=== PATIENT | male | born 1955 | race Caucasian/White ===

== ENCOUNTER 2016-08-29 19:59 | Observation (INO) | payer BC ==
[2016-08-29] MEDS ORDERED: NS 0.9% 1000 ML* 1,000 ML IV ONE ×2 (20:13→23:15)
[2016-08-29] MEDS ORDERED: levETIRAcetam IV* 1,000 MG in NS 0.9% 100 ML* 100 ML IVPB ONE (20:13)
[2016-08-29 20:30] LABS: Hematocrit 45 % (42-52); Hemoglobin 15.2 g/dl (14.0-18.0); Mean Corpuscular HGB Conc 34 g/dl (31-36); Mean Corpuscular Hemoglobin 31 pg (27-31); Mean Corpuscular Volume 92 fL (80-94); Mean Platelet Volume 8 um3 (7.4-10.4); Red Blood Count 4.85 10^6/ul (4.0-5.4); Red Cell Distribution Width 13 % (10.5-15); White Blood Count 8.8 10^3/ul (3.5-10.8)
[2016-08-29 20:45] LABS: ALT 20 U/L (7-52); AST 30 U/L (13-39); Albumin 4.5 g/dL (3.2-5.2); Alkaline Phosphatase 55 U/L (34-104); Anion Gap 15 mmol/L (2-11); BUN/Creatinine Ratio 11.8 (8-20); Blood Urea Nitrogen 11 mg/dL (6-24); CO2 Carbon Dioxide 20 mmol/L (22-32); Calcium 9.5 mg/dL (8.6-10.3); Chloride 101 mmol/L (101-111); EGFR African American 107.3 (>60); EGFR Non-African American 83.5 (>60); Globulin 2.6 g/dL (2-4); Glucose 161 mg/dL (70-100); Magnesium 2.1 mg/dL (1.9-2.7); Sodium 136 mmol/L (133-145); Total Protein 7.1 g/dL (6.4-8.9)
[2016-08-29] MEDS ORDERED: levETIRAcetam IV* 500 MG/5 ML VIAL ONE (20:48)
[2016-08-29 21:21] LABS: Alcohol < 10 mg/dL (<10)
[2016-08-29 21:27] LABS: Troponin I 0.02 ng/mL (<0.04)
[2016-08-29] MEDS ORDERED: Diltiazem IV* 5 MG/ML 5 ML VIAL (for loading dose/IV Push) (25 MG) IV SLOW PU ONE (22:10)
--- NOTE | 2016-08-29 22:15 | ED ---
larissa Briseno Timothy, scribed for Winston Perales MD on 08/29/16 at 2010 . Syncope/Near Syncope - HPI Summary HPI Summary: Winston Hinton is a 60 yo male presenting to [facility] with witnessed "seizure-like" activity for several minutes today beginning at 1830, resulting in an extended ( 30-45 minute) post-ictal period. His fiance witnessed the seizure. He denies any pain currently. He states he felt his seizure beginning, and lost his sense of balance. His last seizure was approximately 3 months ago. He states he had gone off his medication, and his seizure followed after a few days, as was the case with this episode. His MHX includes seizures, benign brain tumor, and craniatomy. - History Of Current Complaint Chief Complaint: EDSeizure Time Seen by Provider: 08/29/16 20:02 Hx Obtained From: Patient Onset/Duration: Sudden Onset, Lasting Minutes, Resolved Timing: Intermittent Episode Lasting - minutes Context: Witnessed Associated Signs And Symptoms: Seizure - Allergies/Home Medications Allergies/Adverse Reactions: Allergies Allergy/AdvReac Type Severity Reaction Status Date / Time Penicillins Allergy SEIZURES/RE Verified 08/29/16 22:43 SP Home Medications: Home Medications Red Yeast Rice Extract [Red Yeast Rice] 300 mg PO DAILY 08/29/16 [History Confirmed 08/29/16] Vitamin D3 1 tab PO DAILY 08/29/16 [History Confirmed 08/29/16] PMH/Surg Hx/FS Hx/Imm Hx Endocrine/Hematology History: Denies: Hx Diabetes Cardiovascular History: Denies: Hx Coronary Artery Disease, Hx Hypertension, Hx Pacemaker/ICD Respiratory History: Denies: Hx Asthma Comment Only: Other Respiratory Problems/Disorders - HX OF SEIZURES History: Denies: Hx Dialysis, Hx Renal Disease Sensory History: Denies: Hx Hearing Aid Neurological History: Reports: Hx Seizures - s/p meningioma resection Psychiatric History: Denies: Hx Panic Disorder - Cancer History Cancer Type, 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 TONSILECTOMY Infectious Disease History: No Infectious Disease History: Denies: Traveled Outside the [place] in Last 30 Days - Family History Known Family History: Positive: None Negative: Cardiac Disease, Hypertension, Diabetes Family History: R & n/C - Social History Alcohol Use: None Hx Substance Use: No Substance Use Type: Reports: None Hx Tobacco Use: No Smoking Status (MU): Never Smoked Tobacco Review of Systems Constitutional: Negative Eyes: Negative ENT: Negative Cardiovascular: Negative Respiratory: Negative Gastrointestinal: Negative Genitourinary: Negative Musculoskeletal: Negative Skin: Negative Positive: Syncope - seizure, extended post-ictal period Psychological: Normal All Other Systems Reviewed And Are Negative: Yes Physical Exam Triage Information Reviewed: Yes Vital Signs On Initial Exam: Initial Vitals Temp Pulse Resp BP Pulse Ox 97.5 F 109 20 153/97 97 08/29/16 20:01 08/29/16 20:01 08/29/16 20:01 08/29/16 20:01 08/29/16 20:01 Vital Signs Reviewed: Yes Appearance: Positive: Well-Appearing, No Pain Distress Skin: Positive: Warm Head/Face: Positive: Normal Head/Face Inspection Eyes: Positive: EOMI, UNA ENT: Positive: Hearing grossly normal Neck: Positive: Supple Respiratory/Lung Sounds: Positive: Clear to Auscultation, Breath Sounds Present Cardiovascular: Positive: IRR Abdomen Description: Positive: Nontender, Soft Bowel Sounds: Positive: Present Musculoskeletal: Positive: Strength/ROM Intact Neurological: Positive: Sensory/Motor Intact, Alert, Oriented to Person Place, Time Psychiatric: Positive: Normal Diagnostics - Vital Signs Vital Signs Temp Pulse Resp BP Pulse Ox 08/29/16 20:01 97.5 F 109 20 153/97 97 - Laboratory Lab Results: Lab Results 08/29/16 08/29/16 08/29/16 Range/Units 20:20 20:20 20:20 WBC 8.8 (3.5-10.8) 10^3/ul RBC 4.85 (4.0-5.4) 10^6/ul Hgb 15.2 (14.0-18.0) g/dl Hct 45 (42-52) % MCV 92 (80-94) fL MCH 31 (27-31) pg MCHC 34 (31-36) g/dl RDW 13 (10.5-15) % Plt Count 242 (150-450) 10^3/ul MPV 8 (7.4-10.4) um3 Neut % (Auto) 86.0 H (38-83) % Lymph % (Auto) 6.3 L (25-47) % [place] % (Auto) 6.3 (1-9) % Eos % (Auto) 0.4 (0-6) % Baso % (Auto) 1.0 (0-2) % Absolute Neuts (auto) 7.6 (1.5-7.7) 10^3/ul Absolute Lymphs (auto) 0.6 L (1.0-4.8) 10^3/ul Absolute Monos (auto) 0.6 (0-0.8) 10^3/ul Absolute Eos (auto) 0 (0-0.6) 10^3/ul Absolute Basos (auto) 0.1 (0-0.2) 10^3/ul Absolute Nucleated RBC 0.01 10^3/ul Nucleated RBC % 0.1 INR (Anticoag Therapy) 0.89 (0.89-1.11) Sodium 136 (133-145) mmol/L Potassium 4.0 (3.5-5.0) mmol/L Chloride 101 (101-111) mmol/L Carbon Dioxide 20 L (22-32) mmol/L Anion Gap 15 H (2-11) mmol/L BUN 11 (6-24) mg/dL Creatinine 0.93 (0.67-1.17) mg/dL Est GFR ( Amer) 107.3 (>60) Est GFR (Non-Af Amer) 83.5 (>60) BUN/Creatinine Ratio 11.8 (8-20) Glucose 161 H (70-100) mg/dL Lactic Acid (0.5-2.0) mmol/L Calcium 9.5 (8.6-10.3) mg/dL Magnesium 2.1 (1.9-2.7) mg/dL Total Bilirubin 0.70 (0.2-1.0) mg/dL AST 30 (13-39) U/L ALT 20 (7-52) U/L Alkaline Phosphatase 55 (34-104) U/L Troponin I 0.02 (<0.04) ng/mL Total Protein 7.1 (6.4-8.9) g/dL Albumin 4.5 (3.2-5.2) g/dL Globulin 2.6 (2-4) g/dL Albumin/Globulin Ratio 1.7 (1-3) Serum Alcohol < 10 (<10) mg/dL 08/29/16 Range/Units 20:20 WBC (3.5-10.8) 10^3/ul RBC (4.0-5.4) 10^6/ul Hgb (14.0-18.0) g/dl Hct (42-52) % MCV (80-94) fL MCH (27-31) pg MCHC (31-36) g/dl RDW (10.5-15) % Plt Count (150-450) 10^3/ul MPV (7.4-10.4) um3 Neut % (Auto) (38-83) % Lymph % (Auto) (25-47) % [place] % (Auto) (1-9) % Eos % (Auto) (0-6) % Baso % (Auto) (0-2) % Absolute Neuts (auto) (1.5-7.7) 10^3/ul Absolute Lymphs (auto) (1.0-4.8) 10^3/ul Absolute Monos (auto) (0-0.8) 10^3/ul Absolute Eos (auto) (0-0.6) 10^3/ul Absolute Basos (auto) (0-0.2) 10^3/ul Absolute Nucleated RBC 10^3/ul Nucleated RBC % INR (Anticoag Therapy) (0.89-1.11) Sodium (133-145) mmol/L Potassium (3.5-5.0) mmol/L Chloride (101-111) mmol/L Carbon Dioxide (22-32) mmol/L Anion Gap (2-11) mmol/L BUN (6-24) mg/dL Creatinine (0.67-1.17) mg/dL Est GFR ( Amer) (>60) Est GFR (Non-Af Amer) (>60) BUN/Creatinine Ratio (8-20) Glucose (70-100) mg/dL Lactic Acid 6.7 H* (0.5-2.0) mmol/L Calcium (8.6-10.3) mg/dL Magnesium (1.9-2.7) mg/dL Total Bilirubin (0.2-1.0) mg/dL AST (13-39) U/L ALT (7-52) U/L Alkaline Phosphatase (34-104) U/L Troponin I (<0.04) ng/mL Total Protein (6.4-8.9) g/dL Albumin (3.2-5.2) g/dL Globulin (2-4) g/dL Albumin/Globulin Ratio (1-3) Serum Alcohol (<10) mg/dL Result Diagrams: 08/29/16 20:20 08/29/16 20:20 Lab Statement: Any lab studies that have been ordered have been reviewed, and results considered in the medical decision making process. - EKG 2015 Cardiac Rate: Tachycardia EKG Rhythm: Atrial Fibrillation EKG Interpretation: afib, rapid ventricular response Re-Evaluation - Re-Evaluation First Eval Change: Improved - hr dec with cardizem, will admit new onset a fib Course/Dx Assessment/Plan: Winston Hinton is a 60 yo male presenting to [facility] after a witnessed seizure with a 40-45 minute post-ictal period. His EKG showed afib, and rapid ventricular response. After review of his lab results, and consultation with Dr. Ybarra, he will be admitted to [facility] - Diagnoses Provider Diagnoses: New onset a-fib - Physician Notifications Discussed Care Of Patient With: 2245 [facility] - discussed Pt condition, agrees to admit Pt. Instructed by Provider To: Admit As Inpatient Discharge - Discharge Plan Condition: Fair Disposition: ADMITTED TO [facility] The documentation as recorded by the larissa castillo Timothy accurately reflects the service I personally performed and the decisions made by me, Winston Perales MD.
[2016-08-29] MEDS ORDERED: Melatonin (NF) 3 MG TAB PO PRN (23:14)
[2016-08-29] MEDS ORDERED: Acetaminophen TAB* 325 MG PO PRN (23:14)
[2016-08-29] MEDS ORDERED: Ondansetron INJ* 2 MG/ML VIAL IV PRN (23:14)
[2016-08-29] MEDS ORDERED: NS 0.9% 1000 ML* 1,000 ML IV SCH (23:15)
--- NOTE | 2016-08-29 23:16 | HP ---
H&P (Free Text) History and Physical: PCP: Erika Skaggs MD Date/Time of Evaluation: 08/29/2016 2310 CC: seizure HPI: Mr Hinton is a 60YO male HX seizure disorder & admitted non-adherence to medications who presents this evening reporting he recalls feeling palpitations and then "passing out". His fiance was present and reported "seizure like" movements to EMS upon arrival. He remained post-ictal for possibly up to 45minutes. He denies chest pain, SOB, N/V, sweating, or other issues. He admits missing 2 doses of levetiracetam Sunday and another dose today. His last seizure was ~3months ago again after medication non-adherence. He has been continuing to drive and is informed that he is not to drive at this point until released by neurology and the [facility] DMV. Additionally, ED evaluation found new onset AFIB/RVR. He does admit to an episode of palpitations roughly monthly each lasting just a few minutes, but is unsure for how long. PMedHx seizure disorder meningioma "tennis ball sized" s/p resection Allergies Penicillins Allergy (Verified 08/29/16 22:43) SEIZURES/RESP Ambulatory Orders Ascorbic Acid TAB* [Vitamin C TAB*] 500 mg PO DAILY 06/26/14 Multiple Minerals W/ Vitamins [[id number]] 1 tab PO DAILY 06/26/14 Multiple Vitamin [Daily-Vitamin] 1 tab PO DAILY 06/26/14 Niacin ER TAB* [Niaspan ER TAB*] 500 mg PO DAILY 06/26/14 Vitamin E CAP* 400 unit PO DAILY 06/26/14 levETIRAcetam TAB* [Keppra TAB*] 250 mg PO TID 06/26/14 Red Yeast Rice Extract [Red Yeast Rice] 300 mg PO DAILY 08/29/16 Vitamin D3 1 tab PO DAILY 08/29/16 PSurgHx craniotomy tonsillectomy SocHx: former social smoker, 12beers/weekend, no recreational drugs; works as a enterprise project manager; lives with his fiance; full code status FamHx: reviewed, non-contributory; Father committed suicide. Mother passed in her 80s 2nd complications of Alzheimer's. ROS: as above, otherwise reviewed and all were negative Constitutional: NAD, normally developed, overweight white male vitals: Vital Signs Temp 36.4 C 08/29/16 20:01 Pulse 98 08/30/16 00:16 Resp 15 08/30/16 00:16 BP 145/101 08/30/16 00:16 Pulse Ox 94 08/30/16 00:01 Intake & Output 08/29/16 08/29/16 08/30/16 11:59 23:59 11:59 Intake Total 1110 Balance 1110 Weight 180 lb Intake: IV Fluids 1110 HEENM: atraumatic; sclera/conjunctiva: non-icteric/clear; hearing: clinically intact; oropharynx: clear, mucosa moist Neck: soft tissue: non-tender; thyroid: normal Pulmonary: clear to auscultation bilaterally, good aeration, no accessory muscle use CV: RR/RR, normal S1S2, no carotid bruit, no jugular venous distention, 2+ B DP/ PT, no edema Abdominal: soft, non-distended, non-tender, no rebound/guarding/rigidity, normoactive bowel sounds, no hepatosplenomegaly or masses, no costovertebral angle tenderness Musculoskeletal: general: grossly intact; gait: stable Integumental: normal appearance and texture Psychiatric orientation: AA&O to PPTS affect: calm mood: cooperative eye contact: good content: reliable memory: absent regarding event responses: timely insight: fair Testing: Lab Results 08/29/16 08/29/16 08/29/16 Range/Units 20:20 20:20 20:20 WBC 8.8 (3.5-10.8) 10^3/ul RBC 4.85 (4.0-5.4) 10^6/ul Hgb 15.2 (14.0-18.0) g/dl Hct 45 (42-52) % MCV 92 (80-94) fL MCH 31 (27-31) pg MCHC 34 (31-36) g/dl RDW 13 (10.5-15) % Plt Count 242 (150-450) 10^3/ul MPV 8 (7.4-10.4) um3 Neut % (Auto) 86.0 H (38-83) % Lymph % (Auto) 6.3 L (25-47) % [place] % (Auto) 6.3 (1-9) % Eos % (Auto) 0.4 (0-6) % Baso % (Auto) 1.0 (0-2) % Absolute Neuts (auto) 7.6 (1.5-7.7) 10^3/ul Absolute Lymphs (auto) 0.6 L (1.0-4.8) 10^3/ul Absolute Monos (auto) 0.6 (0-0.8) 10^3/ul Absolute Eos (auto) 0 (0-0.6) 10^3/ul Absolute Basos (auto) 0.1 (0-0.2) 10^3/ul Absolute Nucleated RBC 0.01 10^3/ul Nucleated RBC % 0.1 INR (Anticoag Therapy) 0.89 (0.89-1.11) Sodium 136 (133-145) mmol/L Potassium 4.0 (3.5-5.0) mmol/L Chloride 101 (101-111) mmol/L Carbon Dioxide 20 L (22-32) mmol/L Anion Gap 15 H (2-11) mmol/L BUN 11 (6-24) mg/dL Creatinine 0.93 (0.67-1.17) mg/dL Est GFR ( Amer) 107.3 (>60) Est GFR (Non-Af Amer) 83.5 (>60) BUN/Creatinine Ratio 11.8 (8-20) Glucose 161 H (70-100) mg/dL Lactic Acid (0.5-2.0) mmol/L Calcium 9.5 (8.6-10.3) mg/dL Magnesium 2.1 (1.9-2.7) mg/dL Total Bilirubin 0.70 (0.2-1.0) mg/dL AST 30 (13-39) U/L ALT 20 (7-52) U/L Alkaline Phosphatase 55 (34-104) U/L Troponin I 0.02 (<0.04) ng/mL Total Protein 7.1 (6.4-8.9) g/dL Albumin 4.5 (3.2-5.2) g/dL Globulin 2.6 (2-4) g/dL Albumin/Globulin Ratio 1.7 (1-3) Serum Alcohol < 10 (<10) mg/dL 08/29/16 08/30/16 Range/Units 20:20 00:10 WBC (3.5-10.8) 10^3/ul RBC (4.0-5.4) 10^6/ul Hgb (14.0-18.0) g/dl Hct (42-52) % MCV (80-94) fL MCH (27-31) pg MCHC (31-36) g/dl RDW (10.5-15) % Plt Count (150-450) 10^3/ul MPV (7.4-10.4) um3 Neut % (Auto) (38-83) % Lymph % (Auto) (25-47) % [place] % (Auto) (1-9) % Eos % (Auto) (0-6) % Baso % (Auto) (0-2) % Absolute Neuts (auto) (1.5-7.7) 10^3/ul Absolute Lymphs (auto) (1.0-4.8) 10^3/ul Absolute Monos (auto) (0-0.8) 10^3/ul Absolute Eos (auto) (0-0.6) 10^3/ul Absolute Basos (auto) (0-0.2) 10^3/ul Absolute Nucleated RBC 10^3/ul Nucleated RBC % INR (Anticoag Therapy) (0.89-1.11) Sodium (133-145) mmol/L Potassium (3.5-5.0) mmol/L Chloride (101-111) mmol/L Carbon Dioxide (22-32) mmol/L Anion Gap (2-11) mmol/L BUN (6-24) mg/dL Creatinine (0.67-1.17) mg/dL Est GFR ( Amer) (>60) Est GFR (Non-Af Amer) (>60) BUN/Creatinine Ratio (8-20) Glucose (70-100) mg/dL Lactic Acid 6.7 H* 1.2 (0.5-2.0) mmol/L Calcium (8.6-10.3) mg/dL Magnesium (1.9-2.7) mg/dL Total Bilirubin (0.2-1.0) mg/dL AST (13-39) U/L ALT (7-52) U/L Alkaline Phosphatase (34-104) U/L Troponin I (<0.04) ng/mL Total Protein (6.4-8.9) g/dL Albumin (3.2-5.2) g/dL Globulin (2-4) g/dL Albumin/Globulin Ratio (1-3) Serum Alcohol (<10) mg/dL ECG, personally reviewed: AFIB rate 126, mild inferior ST depression Impression: 60M presenting after seizure 2nd medication non-adherence and found to be in new onset AFIB/RVR DIAGNOSIS & PLAN Primary AFIB/RVR : rate control : heparin GTT : supplemental oxygen : IVFs : telemetry : consider cardiology consult in AM, if appropriate : supportive care seizure disorder : complicated my recurrent medication non-adherence : no driving until released by neurology & [place] DMV : levetiracetam 1g IV in ED, restart 250mg PO TID in AM : seizure precautions : consider neurology consult in AM Admission Rational: observation for AFIB/RVR DVTp: heparin GTT Code Status: full
[2016-08-30] MEDS ORDERED: Heparin DRIP 25,000 UNITS(*) 25,000 UNITS/500 ML BAG IVPB SCH (00:45)
[2016-08-30] MEDS: Metoprolol Succinate XL TAB* 25 MG PO SCH ×2 (00:56→09:50)
[2016-08-30] MEDS ORDERED: Heparin VIAL(*) 5000 UNITS/ML VIAL (FIVE THOUSAND) IV SCH (01:00)
[2016-08-30] MEDS ORDERED: Heparin VIAL(*) 5000 UNITS/ML VIAL (FIVE THOUSAND) SUBCUT SCH (06:00)
[2016-08-30] MEDS ORDERED: Omeprazole CAP* 20 MG PO SCH (06:00)
[2016-08-30] MEDS ORDERED: Docusate CAP* 100 MG PO SCH (09:00)
[2016-08-30] MEDS ORDERED: Influenza VAC *QUAD* 2016-17* 0.5 ML SYRINGE IM ONE (09:00)
[2016-08-30] MEDS ORDERED: Niacin ER TAB* 500 MG PO SCH (09:00)
[2016-08-30] MEDS: levETIRAcetam TAB* 500 MG PO SCH ×2 (09:50→12:24)
--- NOTE | 2016-08-30 10:11 | DCNOTE ---
Subjective Date of Service: 08/30/16 Interval History: No new c/o, anxious to go home. He states he simply misplaced his levetiracetam. He states he only gets a seizure when he misses some doses, and this may happen about 3 times a year. He states he only drinks on weekends. When I asked if he drinks 10 beers on a weekend, he agreed. Objective Active Medications: Acetaminophen (Tylenol Tab*) 650 mg PO Q6H PRN PRN Reason: FEVER/PAIN Docusate Sodium (Colace Cap*) 200 mg PO BID [facility] Last Admin: 08/30/16 09:50 Dose: 200 mg Heparin Sodium (Porcine) (Heparin Vial(*)) 0 units IV .PER PROTOCOL [facility] Last Admin: 08/30/16 03:11 Dose: 6,100 units Sodium Chloride (Ns 0.9% 1000 Ml*) 1,000 mls @ 100 mls/hr IV PER RATE [facility] Last Admin: 08/30/16 00:55 Dose: 100 mls/hr Heparin Sodium/Dextrose (Heparin Drip 25,000 Units(*)) 25,000 units in 500 mls @ 0 mls/hr IVPB .(INITIAL RATE) [facility]; Per Protocol PRN Reason: Protocol Last Admin: 08/30/16 03:14 Dose: 23 mls/hr Levetiracetam (Keppra Tab*) 250 mg PO TID [facility] Last Admin: 08/30/16 09:50 Dose: 250 mg Melatonin (Melatonin (Nf)) 3 mg PO BEDTIME PRN; Protocol PRN Reason: Sleep Metoprolol Succinate (Toprol Xl Tab*) 25 mg PO DAILY [facility] Last Admin: 08/30/16 09:50 Dose: 25 mg Niacin (Niaspan Er Tab*) 500 mg PO DAILY [facility] Omeprazole (Prilosec Cap*) 20 mg PO DAILY@0600 [facility] Last Admin: 08/30/16 05:46 Dose: 20 mg Ondansetron HCl (Zofran Inj*) 4 mg IV Q6H PRN PRN Reason: NAUSEA Last Admin: 08/30/16 00:55 Dose: 4 mg Vital Signs 08/30/16 08/30/16 08/30/16 00:30 00:57 02:20 Temperature 98.3 F 98.3 F Pulse Rate 100 116 116 Respiratory 23 18 18 Rate Blood Pressure 171/89 188/113 188/113 (mmHg) O2 Sat by Pulse 95 97 97 Oximetry 08/30/16 08/30/16 08/30/16 03:47 07:44 07:47 Temperature 98.9 F 100.5 F Pulse Rate 74 67 Respiratory 16 18 16 Rate Blood Pressure 152/87 156/95 (mmHg) O2 Sat by Pulse 95 90 Oximetry Oxygen Devices in Use Now: None Appearance: Alert, sitting on the edge of the bed. In fair spirits. Looks comfortable. Eyes: No Scleral Icterus Ears/Nose/Mouth/Throat: Clear Oropharnyx, Mucous Membranes Moist Neck: NL Appearance and Movements; NL JVP, No Thyroid Enlargement, Masses Respiratory: Symmetrical Chest Expansion and Respiratory Effort, Clear to Auscultation, Clear to Percussion Cardiovascular: NL Sounds; No Murmurs; No JVD, RRR, No Edema, - Extremities: No Edema, No Clubbing, Cyanosis, - Skin: No Rash or Ulcers, No Nodules or Sclerosis, - Neurological: Alert and Oriented x 3, NL Sensation Result Diagrams: 08/29/16 20:20 08/29/16 20:20 Additional Lab and Data: Lab Results 08/29/16 08/29/16 08/29/16 Range/Units 20:20 20:20 20:20 WBC 8.8 (3.5-10.8) 10^3/ul RBC 4.85 (4.0-5.4) 10^6/ul Hgb 15.2 (14.0-18.0) g/dl Hct 45 (42-52) % MCV 92 (80-94) fL MCH 31 (27-31) pg MCHC 34 (31-36) g/dl RDW 13 (10.5-15) % Plt Count 242 (150-450) 10^3/ul MPV 8 (7.4-10.4) um3 Neut % (Auto) 86.0 H (38-83) % Lymph % (Auto) 6.3 L (25-47) % [place] % (Auto) 6.3 (1-9) % Eos % (Auto) 0.4 (0-6) % Baso % (Auto) 1.0 (0-2) % Absolute Neuts (auto) 7.6 (1.5-7.7) 10^3/ul Absolute Lymphs (auto) 0.6 L (1.0-4.8) 10^3/ul Absolute Monos (auto) 0.6 (0-0.8) 10^3/ul Absolute Eos (auto) 0 (0-0.6) 10^3/ul Absolute Basos (auto) 0.1 (0-0.2) 10^3/ul Absolute Nucleated RBC 0.01 10^3/ul Nucleated RBC % 0.1 INR (Anticoag Therapy) 0.89 (0.89-1.11) Sodium 136 (133-145) mmol/L Potassium 4.0 (3.5-5.0) mmol/L Chloride 101 (101-111) mmol/L Carbon Dioxide 20 L (22-32) mmol/L Anion Gap 15 H (2-11) mmol/L BUN 11 (6-24) mg/dL Creatinine 0.93 (0.67-1.17) mg/dL Est GFR ( Amer) 107.3 (>60) Est GFR (Non-Af Amer) 83.5 (>60) BUN/Creatinine Ratio 11.8 (8-20) Glucose 161 H (70-100) mg/dL Lactic Acid (0.5-2.0) mmol/L Calcium 9.5 (8.6-10.3) mg/dL Magnesium 2.1 (1.9-2.7) mg/dL Total Bilirubin 0.70 (0.2-1.0) mg/dL AST 30 (13-39) U/L ALT 20 (7-52) U/L Alkaline Phosphatase 55 (34-104) U/L Troponin I 0.02 (<0.04) ng/mL Total Protein 7.1 (6.4-8.9) g/dL Albumin 4.5 (3.2-5.2) g/dL Globulin 2.6 (2-4) g/dL Albumin/Globulin Ratio 1.7 (1-3) Serum Alcohol < 10 (<10) mg/dL 08/29/16 Range/Units 20:20 WBC (3.5-10.8) 10^3/ul RBC (4.0-5.4) 10^6/ul Hgb (14.0-18.0) g/dl Hct (42-52) % MCV (80-94) fL MCH (27-31) pg MCHC (31-36) g/dl RDW (10.5-15) % Plt Count (150-450) 10^3/ul MPV (7.4-10.4) um3 Neut % (Auto) (38-83) % Lymph % (Auto) (25-47) % [place] % (Auto) (1-9) % Eos % (Auto) (0-6) % Baso % (Auto) (0-2) % Absolute Neuts (auto) (1.5-7.7) 10^3/ul Absolute Lymphs (auto) (1.0-4.8) 10^3/ul Absolute Monos (auto) (0-0.8) 10^3/ul Absolute Eos (auto) (0-0.6) 10^3/ul Absolute Basos (auto) (0-0.2) 10^3/ul Absolute Nucleated RBC 10^3/ul Nucleated RBC % INR (Anticoag Therapy) (0.89-1.11) Sodium (133-145) mmol/L Potassium (3.5-5.0) mmol/L Chloride (101-111) mmol/L Carbon Dioxide (22-32) mmol/L Anion Gap (2-11) mmol/L BUN (6-24) mg/dL Creatinine (0.67-1.17) mg/dL Est GFR ( Amer) (>60) Est GFR (Non-Af Amer) (>60) BUN/Creatinine Ratio (8-20) Glucose (70-100) mg/dL Lactic Acid 6.7 H* (0.5-2.0) mmol/L Calcium (8.6-10.3) mg/dL Magnesium (1.9-2.7) mg/dL Total Bilirubin (0.2-1.0) mg/dL AST (13-39) U/L ALT (7-52) U/L Alkaline Phosphatase (34-104) U/L Troponin I (<0.04) ng/mL Total Protein (6.4-8.9) g/dL Albumin (3.2-5.2) g/dL Globulin (2-4) g/dL Albumin/Globulin Ratio (1-3) Serum Alcohol (<10) mg/dL Assess/Plan/Problems-Billing Assessment: - Patient Problems (1) Seizure Current Visit: Yes Status: Acute Code(s): R56.9 - UNSPECIFIED CONVULSIONS SNOMED Code(s): 29996239 Comment: Patient states he only gets a seizure when he misses some doses of levetriacetam. He tolerates the med well. He understands that it is very important to not miss any doses. He will ask Dr. Link about the possibility of once daily or twice daily dosing of levetiracetam. He will moderate his alcohol use. (2) Atrial fibrillation Current Visit: Yes Status: Acute Code(s): I48.91 - UNSPECIFIED ATRIAL FIBRILLATION SNOMED Code(s): 15874097 Comment: PAF, converted spontaneously about 1:30 AM today. Patient informed that alcohol consumption can precipatate atrial fib. He will try to moderate his alcohol consumption. Echo done, report pending. Add on TSH pending. Consider outpt long-term cardiac monitoring. Status and Disposition: Discharge now. Fup Nikolay Eckert.
[2016-08-30 11:07] LABS: Urine Bilirubin Negative (Negative); Urine Glucose Negative (Negative); Urine Nitrite Negative (Negative)
[2016-08-30 12:09] VITALS: BP 155/85
--- NOTE | 2016-08-30 12:17 | ECHO ---
Patient: SELIN ECHEVARRIA [facility] Rec#: [id number] : 1955 Date: 08/30/2016 Age: 60y Height: 175.26 cm / 69.0 in Weight: 85.28 kg / 188.0 lbs Sex: M BSA: 2.01 Room#: 452 Admit Date#: 08/30/2016 Type: Inpatient Referring: Breezy Hameed MD Reading: Janice Cueva MD Masticator: Martha Scruggs FAHEEM CC: Ollie Skaggs MD Transthoracic Echocardiogram Indication: A-fib with RVR BP: 156/95 HR: 64 Rhythm: NSR Findings History: Seizures, noncompliance with medications,palpitations,nonsmoker. Technical Comments: The study quality is good. Completed at 1051. Left Ventricle: The left ventricular chamber size is normal. Mild concentric left ventricular hypertrophy is observed. Global left ventricular wall motion and contractility are within normal limits. The estimated ejection fraction is 55-60%. Abnormal left ventricular diastolic filling is observed, consistent with impaired relaxation. Left Atrium: The left atrium is mildly dilated. Right Ventricle: The right ventricle is mildly dilated. The right ventricular global systolic function is normal. Right Atrium: The right atrium is mildly dilated. Aortic Valve: The aortic valve is trileaflet. The aortic valve leaflets are mildly thickened. Systolic excursion of the non coronary cusp is reduced. There is no evidence of aortic regurgitation. There is mild aortic stenosis. Highest aortic valve velocity was acquired with Pedoff in right sternal border position. Mitral Valve: The mitral valve leaflets are mildly thickened. There is mild mitral regurgitation. There is no evidence of mitral stenosis. Tricuspid Valve: The tricuspid valve leaflets are normal. There is mild tricuspid regurgitation. There is evidence that pulmonary hypertension may be underestimated. There is no tricuspid stenosis. Pulmonic Valve: The pulmonic valve appears normal. There is mild pulmonic regurgitation. There is no pulmonic stenosis. Pericardium: A pericardial fat pad is visualized. Aorta: There is no dilatation of the ascending aorta. There is no dilatation of the aortic arch. There is mild dilatation of the aortic root. Pulmonary Artery: The main pulmonary artery appears normal. Venous: The inferior vena cava appears normal in size. There is a greater than 50% respiratory change in the inferior vena cava dimension. Conclusions Mild concentric left ventricular hypertrophy is observed. Global left ventricular wall motion and contractility are within normal limits. Abnormal left ventricular diastolic filling is observed, consistent with impaired relaxation. The right ventricular global systolic function is normal. The aortic valve leaflets are mildly thickened. There is mild aortic stenosis: mean gradient 8mm Hg, LAKISHA 2.3 cm2. DI 0.51. There is mild mitral regurgitation. There is mild tricuspid regurgitation. No prior study for comparison. Measurements Name Value Normal Range RVIDd (AP) 2D 3.9 cm (0.9 - 2.6) RVDdMajor (2D) 3.7 cm (2.2 - 4.4) RAd ISD 4CH 5.9 cm (3.4 - 4.9) RA (A4C)W 4 cm (2.9 - 4.6) IVSd (2D) 1.2 cm (0.6 - 1) LVPWd (2D) 1.2 cm (0.6 - 1) LVIDd (2D) 4.1 cm (3.6 - 5.4) LVIDs (2D) 2.7 cm - LV FS (2D) 36 % (25 - 45) Aortic Annulus 1.9 cm (1.4 - 2.6) Ao root diameter (2D) 3.8 cm (2.1 - 3.5) Ascending Ao 3.4 cm (2.1 - 3.4) Aortic arch 3.1 cm (1.8 - 3.4) Descending Ao 0.7 cm - LA dimension (AP) 2D 4.1 cm (2.3 - 3.8) LAd ISD 4CH 4.7 cm (2.9 - 5.3) LA ISD 4CH W 4.1 cm (2.5 - 4.5) Name Value Normal Range LA ESV SP 4CH (A/L) 53 ml - LA ESV SP 2CH (A/L) 72 ml - LA ESV BP (A/L) 66 ml - LA ESV BP (A/L) index 32.72 ml/m2 - LA ESV SP 4CH (MOD) 48 ml - LA ESV SP 2CH (MOD) 69 ml - Name Value Normal Range MV E-wave Vmax 1.1 m/sec - MV deceleration time 208 msec - MV A-wave Vmax 0.9 m/sec - MV E:A ratio 1.12 ratio - LV septal e' Vmax 0.09 m/sec - LV lateral e' Vmax 0.09 m/sec - LV E:e' septal ratio 12.22 ratio - LV E:e' lateral ratio 12.22 ratio - Name Value Normal Range AV Vmax 2.3 m/sec - AV VTI 49.2 cm - AV peak gradient 21.76 mmHg - AV mean gradient 8.35 mmHg - LVOT diameter 2.3 cm - LVOT Vmax 1.1 m/sec - LVOT VTI 25.4 cm - LVOT peak gradient 5.24 mmHg - LVOT mean gradient 2.19 mmHg - SV LVOT 102 ml - LAKISHA (continuity Vmax) 2 cm2 - LAKISHA (continuity VTI) 2.3 cm2 - Name Value Normal Range TR Vmax 2.7 m/sec - TR peak gradient 28 mmHg - RAP 3 mmHg - RVSP 31 mmHg - IVC diameter 2 cm - Name Value Normal Range PV Vmax 1 m/sec - PV peak gradient 3.83 mmHg -
--- NOTE | 2016-08-30 22:23 | DS ---
DISCHARGE SUMMARY: DATE OF ADMISSION: DATE OF DISCHARGE: 08/30/16 HISTORY: This 60-year-old man presented after seizure. He had some palpitations too. He says he gets palpitations now and then, but usually does not get dizzy with them. He is not really sure that he gets palpitations before seizures. He does get an aura feeling dizzy in a different way before his seizures. He says he only get seizures when he misses a few doses of his levetiracetam. He did miss a few doses at this time. He states this happens 3 times a year or so. There is no particular reason why he missed the doses of medications. He does not have any major side effects from the medications and understands that he needs to take the medications to prevent seizures. The patient was in atrial fibrillation with rapid ventricular rate on admission. He was started on heparin and placed on telemetry. About 1:30 in the morning, he converted to normal sinus rhythm. When I asked him about alcohol consumption, he said he drank on the weekends. When I asked if he drank 10 beers on the weekend, he said yes. I suspect it is even more than that. I explained to him that alcohol can precipitate atrial fibrillation. He said he could do without the alcohol. I had a lengthy discussion with him about the need to take his medications regularly and to find a more reliable system to avoid missing doses. Possibly, he could have his levetiracetam in fewer than 3 doses a day, which might help him with his compliance. I will leave this up to Dr. Link. In terms of his atrial fibrillation, add on TSH and echocardiogram were requested, the reports are pending. As he converted to normal sinus rhythm, I suspect his heart is structurally normal. I think it might be worthwhile to do long-term cardiac monitoring either with 4-week Holter monitor or loop recorder to see if he is having other episodes of atrial fibrillation. If they are precipitated by his drinking and he stops drinking, then he should few or none episodes of atrial fibrillation. If he does have significant number of episodes of atrial fibrillation, then custodial anticoagulation would be a consideration, although his scoring for this would be relatively low. FINAL DIAGNOSES: 1. Seizure disorder. 2. Medication noncompliance. 3. Paroxysmal atrial fibrillation. 4. Alcohol excess. DISCHARGE MEDICATIONS: 1. Niaspan 500 mg daily. 2. Multivitamin with mineral daily. 3. Levetiracetam 250 mg b.i.d. 4. Multivitamin daily. 5. Vitamin B 400 units daily. 6. Ascorbic acid 500 mg daily. 7. Vitamin D3 1 tablet daily. 8. Red yeast extract 300 mg daily. CC: Dr. Skaggs; Dr. Link* [id number]/[facility] #: [id number] [facility]
== END 2016-08-30 13:15 | disposition home or self-care (01) ==
LOC: ED 19:59 → MEDTELE 08-30 00:23
PROVIDERS: ADMIT Hospitalist; ATTEND Internal Medicine
DX: I48.0 Paroxysmal atrial fibrillation (principal); G40.909 Epilepsy, unspecified, not intractable, without status epilepticus; Z91.14 Patient's other noncompliance with medication regimen; I51.7 Cardiomegaly; Z79.899 Other long term (current) drug therapy; Z88.0 Allergy status to penicillin; Z87.891 Personal history of nicotine dependence; Z23 Encounter for immunization
CPT/HCPCS: 36415; 80053; 80177; 80320; 81003; 83605; 83735; 84443; 84484; 85025; 85610; 85730; 90471; 90686; 93005; 93306; 96365; 96366; 96367; 99285; A9270-GY; G0008; G0378; G0480; J1644; J2405

== ENCOUNTER 2016-10-24 10:49 | Emergency (ER) | payer BC ==
[2016-10-24] MEDS ORDERED: NS 0.9% 1000 ML* 1,000 ML IV ONE (10:57)
[2016-10-24 11:22] LABS: Hematocrit 46 % (42-52); Hemoglobin 15.5 g/dl (14.0-18.0); Mean Corpuscular HGB Conc 34 g/dl (31-36); Mean Corpuscular Hemoglobin 31 pg (27-31); Mean Corpuscular Volume 92 fL (80-94); Mean Platelet Volume 7 um3 (7.4-10.4); Red Cell Distribution Width 13 % (10.5-15); White Blood Count 8.1 10^3/ul (3.5-10.8)
--- NOTE | 2016-10-24 11:23 | RAD ---
INDICATION: Seizure. COMPARISON: Comparison is made with a prior chest x-ray study from January 18, 2016. TECHNIQUE: A portable view of the chest was obtained. FINDINGS: Cardiac and mediastinal contours appear to be within normal limits. The lungs are clear. No pleural effusion is seen. IMPRESSION: NO EVIDENCE FOR ACUTE DISEASE.
[2016-10-24 11:37] LABS: ALT 21 U/L (7-52); AST 30 U/L (13-39); Albumin 4.6 g/dL (3.2-5.2); Alkaline Phosphatase 67 U/L (34-104); Anion Gap 11 mmol/L (2-11); Blood Urea Nitrogen 13 mg/dL (6-24); CO2 Carbon Dioxide 23 mmol/L (22-32); Calcium 9.7 mg/dL (8.6-10.3); Chloride 98 mmol/L (101-111); EGFR African American 98.7 (>60); EGFR Non-African American 76.7 (>60); Globulin 2.7 g/dL (2-4); Glucose 176 mg/dL (70-100); Magnesium 2.2 mg/dL (1.9-2.7); Potassium 3.7 mmol/L (3.5-5.0); Sodium 132 mmol/L (133-145); Total Protein 7.3 g/dL (6.4-8.9)
[2016-10-24 12:01] LABS: Alcohol < 10 mg/dL (<10)
[2016-10-24] MEDS ORDERED: levETIRAcetam TAB* 500 MG PO ONE ×2 (12:08→12:20)
[2016-10-24 12:13] LABS: Urine Bacteria Absent (Absent); Urine Bilirubin Negative (Negative); Urine Glucose Negative (Negative); Urine Nitrite Negative (Negative)
[2016-10-24 12:23] LABS: Benzodiazepine Urine Screen None Detected (None Detect)
[2016-10-24] MEDS ORDERED: Acetaminophen TAB* 325 MG PO ONE (12:29)
--- NOTE | 2016-10-24 12:50 | ED ---
larissa Briseno Timothy, scribed for Hunter Lux MD on 10/24/16 at 1100 . Syncope/Near Syncope - HPI Summary HPI Summary: Winston Hinton is a 60 yo male presenting to [facility] with seizure. Pt was at work sitting at his desk when Sx began. A coworker walked into the office and "saw him snoring, laying down on his desk". Per EMS, he had a seizure and was postictal when found by his coworker. Pt currently is oriented to person place and time. He states he thinks he has a seizure, but does not really remember. He states he does not believe that he hit his head or bit his tongue. He self- medicates with Keppra, 250 ml TID. His neurologist is Dr. Link. His MHx includes seizures S/P meningioma resection, and depression. - History Of Current Complaint Time Seen by Provider: 10/24/16 10:55 Hx Obtained From: Patient Onset/Duration: Sudden Onset, Lasting Minutes, Resolved Timing: Intermittent Episode Lasting - minutes Context: Unwitnessed Activity At Onset: At Rest Associated Head Trauma: No Aggravating Factor(s): Nothing Alleviating Factor(s): Spontaneous Resolution Associated Signs And Symptoms: Seizure - Allergies/Home Medications Allergies/Adverse Reactions: Allergies Allergy/AdvReac Type Severity Reaction Status Date / Time Penicillins Allergy SEIZURES/RE Verified 10/24/16 11:01 SP PMH/Surg Hx/FS Hx/Imm Hx Endocrine/Hematology History: Denies: Hx Diabetes Cardiovascular History: Denies: Hx Coronary Artery Disease, Hx Hypertension, Hx Pacemaker/ICD Respiratory History: Denies: Hx Asthma Comment Only: Other Respiratory Problems/Disorders - HX OF SEIZURES History: Denies: Hx Dialysis, Hx Renal Disease Sensory History: Denies: Hx Hearing Aid Neurological History: Reports: Hx Seizures - s/p meningioma resection Psychiatric History: Reports: Hx Depression Denies: Hx Panic Disorder - Cancer History Cancer Type, 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 TONSILECTOMY - Family History Known Family History: Positive: None Negative: Cardiac Disease, Hypertension, Diabetes Family History: R & n/C - Social History Alcohol Use: None Hx Substance Use: No Substance Use Type: Reports: None Hx Tobacco Use: No Smoking Status (MU): Never Smoked Tobacco Review of Systems Constitutional: Negative Eyes: Negative ENT: Negative Cardiovascular: Negative Respiratory: Negative Gastrointestinal: Negative Genitourinary: Negative Musculoskeletal: Negative Skin: Negative Neurological: Negative, Other - seizure with postictal period Psychological: Normal All Other Systems Reviewed And Are Negative: Yes Physical Exam - Summary Physical Exam Summary: VITAL SIGNS: Reviewed. GENERAL: Patient is a well developed and nourished male who is lying comfortable in the stretcher. Patient is not in any acute respiratory distress. HEAD AND FACE: No signs of trauma. No ecchymosis, hematomas or skull depressions. No sinus tenderness. EYES: PERRLA, EOMI x 2, No injected conjunctiva, no nystagmus. No photophobia. EARS: Hearing grossly intact. Ear canals and tympanic membranes are within normal limits. MOUTH: Oropharynx within normal limits. NECK: Supple, trachea is midline, no adenopathy, no JVD, no carotid bruit, no c- spine tenderness, neck with full ROM. No meningeal signs, no Kernig's or brudzinskis signs. CHEST: Symmetric, no tenderness at palpation LUNGS: Clear to auscultation bilaterally. No wheezing or crackles. CVS: Regular rate and rhythm, S1 and S2 present, no murmurs or gallops appreciated. ABDOMEN: Soft, non-tender. No signs of distention. No rebound no guarding, and no masses palpated. Bowel sounds are normal. EXTREMITIES: FROM in all major joints, no edema, no cyanosis or clubbing. NEURO: Alert and oriented x 3. No acute neurological deficits. Speech is normal and follows commands. SKIN: Dry and warm Triage Information Reviewed: Yes Vital Signs On Initial Exam: Initial Vitals BP 194/122 10/24/16 10:54 Vital Signs Reviewed: Yes Diagnostics - Vital Signs Vital Signs Temp Pulse Resp BP Pulse Ox 10/24/16 11:02 96 10/24/16 11:00 120 20 182/101 95 10/24/16 10:56 125 18 96 10/24/16 10:55 98.9 F 121 16 194/122 96 10/24/16 10:54 194/122 - Laboratory Result Diagrams: 10/24/16 11:04 10/24/16 11:04 Lab Statement: Any lab studies that have been ordered have been reviewed, and results considered in the medical decision making process. - Radiology CXR Xray Interpretation: No Acute Changes - IMPRESSION: NO EVIDENCE FOR ACUTE DISEASE. Radiology Interpretation Completed By: Radiologist - EKG 1050 EKG Interpretation: Sinus tachycardia @ 118 BPM, no ST elevations Course/Dx Course Of Treatment: Winston Hinotn is a 60 yo male presenting to [facility] in a postical state S/P seizure occuring at rest with no associated head trama or tongue bite. After review of his imaging studies and discussion with Figueroa Link , he will be discharged with appropriate instructions. Assessment/Plan: Winston Hinton is a 60 yo male presenting to [facility] with seizure. Pt was at work sitting at his desk when Sx began. A coworker walked into the office and "saw him snoring, laying down on his desk". Per EMS, he had a seizure and was postictal when found by his coworker. Pt currently is oriented to person place and time. He states he thinks he has a seizure, but does not really remember. Unknown time of the Seizure. Does not recall last seizure. He states he does not believe that he hit his head or bit his tongue. He self- medicates with Keppra, 250 ml TID. His neurologist is Dr. Link. His MHx includes seizures S/P meningioma resection, and depression. Blood work wnl except for Na 132, glucose 176 and lactic acid 6. CXR impression: No acute cardiopulmonary pathology. He was given tylenol for a headache. I discussed the case with Dr. Link (patients neurologist) and he recommends to load patient with 500 mg of Keppra. He also recommends to increase Keppra to 250 mg AM, 500 mg Noon and 500 mg at bedtime. He also recommends to discharge patient home and f/u with him on . He was given instructions on Seizure precautions. He was advised no Driving until cleared with Neurology. Patient understands and agrees. I discussed all the findings and test results with the patient. Patient was instructed to return to the emergency room immediately if any of the symptoms return or worsens. Patient understands and agrees. Plan of care was discussed with the patient and patient understands and agrees with the plan of care. All questions were answered at patient satisfaction. There were no further complaints or concerns. Patient is alert and oriented x 3. Patient vital signs are stable. Patient is to follow up with primary care physician in the next 2 to 3 days. Patient understands and agrees. - Diagnoses Differential Diagnosis/HQI/PQRI: Positive: Cerebral Vascular Accident, Metabolic Reaction, Seizure, Transient Ischemic Attack, Vasovagal Episode Provider Diagnoses: Recurrent seizures - Physician Notifications Discussed Care Of Patient With: 1217 - Dr. Link (neurology) - Discussed Pt condition, recommends Pt take 500 keppra at noon today and change his medication to 250 am, 500 noon, 500 at night, and Pt be discharged now. Discharge - Discharge Plan Condition: Stable Disposition: HOME Patient Education Materials: Recurrent Seizures in Adults (ED) Referrals: Kimberly Link MD [Medical Doctor] - 2 Days Additional Instructions: Please follow up with Dr. Link regarding your visit to the emergency department today. Return to the emergency department with any new or recurring Symptoms. The documentation as recorded by the larissa castillo Timothy accurately reflects the service I personally performed and the decisions made by , Hunter Lux MD.
[2016-10-24 13:14] VITALS: BP 189/101
== END 2016-10-24 13:13 | disposition home or self-care (01) ==
LOC: ED 10:49
DX: R56.9 Unspecified convulsions (principal); Z88.0 Allergy status to penicillin
CPT/HCPCS: 36415; 71010; 80053; 80177; 80307; 80320; 81003; 81015; 83605; 83735; 85025; 85610; 99284; A9270-GY; G0480

== ENCOUNTER 2018-06-28 12:18 | Emergency (ER) | payer BC ==
[2018-06-28 13:31] LABS: ABS Basophils 0.1 10^3/ul (0-0.2); ABS Eosinophils 0.1 10^3/ul (0-0.6); ABS Lymphocytes 1.2 10^3/ul (1.0-4.8); ABS Monocytes 0.6 10^3/ul (0-0.8); ABS Neutrophils 8.7 10^3/ul (1.5-7.7); ABS Nucleated RBC 0 10^3/ul; Eosinophil % 1.2 % (0-6); Hematocrit 41 % (42-52); Hemoglobin 14.3 g/dl (14.0-18.0); Lymphocyte % 11.1 % (25-47); Mean Corpuscular HGB Conc 35 g/dl (31-36); Mean Corpuscular Hemoglobin 30 pg (27-31); Mean Corpuscular Volume 88 fL (80-94); Nucleated Red Blood Cells % 0; Platelet Count 225 10^3/ul (150-450); Red Blood Count 4.69 10^6/ul (4.00-5.40); Red Cell Distribution Width 14 % (10.5-15); White Blood Count 10.7 10^3/ul (3.5-10.8)
[2018-06-28 13:42] LABS: INR 0.87 (0.77-1.02)
[2018-06-28 13:46] LABS: EGFR Non-African American 76.2 (>60)
--- NOTE | 2018-06-28 15:03 | ED ---
Neurological HPI - HPI Summary HPI Summary: A 62 y/o male brought in by ambulance presents to the ED c/o seizure at 11:00 . The patient states that he was rearranging chemicals when he smelt ammonia and started to have a seizure. He is not sure how long his seizure lasted. He states that he used to take Keppra but changed medication because he claims it would give him red mcnamara on his arms. He has a Hx of seizures and a brain tumor and believes the scar tissue is what triggers his seizures. He also c/o dizziness at the time of onset and numbness in his left leg. He denies syncope, biting his tongue or losing his bowel or urine control but does admit that he had difficulty talking. He claims to have had an MRI 2 months ago and 1.5 years ago which he states were negative. He states that now he is only feeling tired. - History of Current Complaint Chief Complaint: EDSeizure Stated Complaint: SEIZURE Time Seen by Provider: 06/28/18 13:00 Hx Obtained From: Patient Onset/Duration: Sudden Onset, Started hours ago Pain Intensity: 0 Pain Scale Used: 0-10 Numeric Character: Dizzy, Numbness/Tingling - Additional Pertinent History Primary Care Physician: [id number] - Allergy/Home Medications Allergies/Adverse Reactions: Allergies Allergy/AdvReac Type Severity Reaction Status Date / Time Penicillins Allergy Severe Shortness Verified 03/01/18 07:34 of Breath Home Medications: Home Medications lamoTRIgine TAB(*) [LaMICtal TAB(*)] 100 mg PO BID 06/28/18 [History Confirmed 06/28/18] PMH/Surg Hx/FS Hx/Imm Hx Endocrine/Hematology History: Denies: Hx Diabetes Cardiovascular History: Denies: Hx Coronary Artery Disease, Hx Hypertension, Hx Pacemaker/ICD Respiratory History: Denies: Hx Asthma Comment Only: Other Respiratory Problems/Disorders - HX OF SEIZURES History: Denies: Hx Dialysis, Hx Renal Disease Sensory History: Denies: Hx Hearing Aid Neurological History: Reports: Hx Seizures - s/p meningioma resection Psychiatric History: Reports: Hx Depression Denies: Hx Panic Disorder - Cancer History Cancer Type, 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 TONSILECTOMY Infectious Disease History: No Infectious Disease History: Denies: Traveled Outside the [place] in Last 30 Days - Family History Known Family History: Negative: Cardiac Disease, Hypertension, Diabetes Family History: R & n/C - Social History Alcohol Use: None Alcohol Amount: 5 beers Hx Substance Use: No Substance Use Type: Reports: None Hx Tobacco Use: No Smoking Status (MU): Never Smoked Tobacco Review of Systems Positive: Fatigue Neurological: Negative - bite tongue or lose bowel or urine control during seizure, Other - Positive: seizure, difficulty speaking, dizziness Positive: Numbness - left leg. Negative: Syncope All Other Systems Reviewed And Are Negative: Yes Physical Exam - Summary Physical Exam Summary: VITAL SIGNS: Reviewed. GENERAL: Patient is a well-developed and nourished MALE who is lying comfortable in the stretcher.Patient is not in any acute respiratory distress. HEAD AND FACE: No signs of trauma. No ecchymosis, hematomas or skull depressions. No sinus tenderness. EYES: PERRLA, EOMI x 2, No injected conjunctiva, no nystagmus. No photophobia. EARS: Hearing grossly intact. Ear canals and tympanic membranes are within normal limits. MOUTH: Oropharynx within normal limits. NECK: Supple, trachea is midline, no adenopathy, no JVD, no carotid bruit, no c- spine tenderness, neck with full ROM. No meningeal signs, no Kernig's or brudzinskis signs. CHEST: Symmetric, no tenderness at palpation LUNGS: Clear to auscultation bilaterally. No wheezing or crackles. CVS: Regular rate and rhythm, S1 and S2 present, no murmurs or gallops appreciated. ABDOMEN: Soft, non-tender. No signs of distention. No rebound no guarding, and no masses palpated. Bowel sounds are normal. EXTREMITIES: FROM in all major joints, no edema, no cyanosis or clubbing. NEURO: Alert and oriented x 3. No acute neurological deficits. Speech is normal and follows commands. SKIN: Dry and warm GCS: 15 Triage Information Reviewed: Yes Vital Signs On Initial Exam: Initial Vitals Temp Pulse Resp BP Pulse Ox 98.5 F 99 21 156/98 95 06/28/18 12:39 06/28/18 12:39 06/28/18 12:39 06/28/18 12:39 06/28/18 12:39 Vital Signs Reviewed: Yes Diagnostics - Vital Signs Vital Signs Temp Pulse Resp BP Pulse Ox 11/09/18 13:39 84 21 154/99 94 06/28/18 13:09 92 18 145/88 96 06/28/18 13:00 93 18 91 06/28/18 12:39 98.5 F 97 19 156/98 94 - Laboratory Lab Results: Lab Results 06/28/18 06/28/18 06/28/18 Range/Units 13:15 13:15 13:15 WBC 10.7 (3.5-10.8) 10^3/ul RBC 4.69 (4.00-5.40) 10^6/ul Hgb 14.3 (14.0-18.0) g/dl Hct 41 L (42-52) % MCV 88 (80-94) fL MCH 30 (27-31) pg MCHC 35 (31-36) g/dl RDW 14 (10.5-15) % Plt Count 225 (150-450) 10^3/ul MPV 7.0 L (7.4-10.4) fL Neut % (Auto) 81.8 (38-83) % Lymph % (Auto) 11.1 L (25-47) % Morehouse % (Auto) 5.2 (0-7) % Eos % (Auto) 1.2 (0-6) % Baso % (Auto) 0.7 (0-2) % Absolute Neuts (auto) 8.7 H (1.5-7.7) 10^3/ul Absolute Lymphs (auto) 1.2 (1.0-4.8) 10^3/ul Absolute Monos (auto) 0.6 (0-0.8) 10^3/ul Absolute Eos (auto) 0.1 (0-0.6) 10^3/ul Absolute Basos (auto) 0.1 (0-0.2) 10^3/ul Absolute Nucleated RBC 0 10^3/ul Nucleated RBC % 0 INR (Anticoag Therapy) 0.87 (0.77-1.02) APTT 28.3 (26.0-36.3) seconds Sodium 139 (135-145) mmol/L Potassium 3.9 (3.5-5.0) mmol/L Chloride 104 (101-111) mmol/L Carbon Dioxide 24 (22-32) mmol/L Anion Gap 11 (2-11) mmol/L BUN 11 (6-24) mg/dL Creatinine 1.00 (0.67-1.17) mg/dL Est GFR ( Amer) 92.2 (>60) Est GFR (Non-Af Amer) 76.2 (>60) BUN/Creatinine Ratio 11.0 (8-20) Glucose 150 H (70-100) mg/dL Lactic Acid (0.5-2.0) mmol/L Calcium 9.5 (8.6-10.3) mg/dL Magnesium 2.1 (1.9-2.7) mg/dL Total Bilirubin 0.40 (0.2-1.0) mg/dL AST 23 (13-39) U/L ALT 21 (7-52) U/L Alkaline Phosphatase 84 (34-104) U/L Total Protein 6.8 (6.4-8.9) g/dL Albumin 4.5 (3.2-5.2) g/dL Globulin 2.3 (2-4) g/dL Albumin/Globulin Ratio 2.0 (1-3) TSH 2.12 (0.34-5.60) mcIU/mL Serum Alcohol < 10 (<10) mg/dL 06/28/18 Range/Units 13:15 WBC (3.5-10.8) 10^3/ul RBC (4.00-5.40) 10^6/ul Hgb (14.0-18.0) g/dl Hct (42-52) % MCV (80-94) fL MCH (27-31) pg MCHC (31-36) g/dl RDW (10.5-15) % Plt Count (150-450) 10^3/ul MPV (7.4-10.4) fL Neut % (Auto) (38-83) % Lymph % (Auto) (25-47) % Morehouse % (Auto) (0-7) % Eos % (Auto) (0-6) % Baso % (Auto) (0-2) % Absolute Neuts (auto) (1.5-7.7) 10^3/ul Absolute Lymphs (auto) (1.0-4.8) 10^3/ul Absolute Monos (auto) (0-0.8) 10^3/ul Absolute Eos (auto) (0-0.6) 10^3/ul Absolute Basos (auto) (0-0.2) 10^3/ul Absolute Nucleated RBC 10^3/ul Nucleated RBC % INR (Anticoag Therapy) (0.77-1.02) APTT (26.0-36.3) seconds Sodium (135-145) mmol/L Potassium (3.5-5.0) mmol/L Chloride (101-111) mmol/L Carbon Dioxide (22-32) mmol/L Anion Gap (2-11) mmol/L BUN (6-24) mg/dL Creatinine (0.67-1.17) mg/dL Est GFR ( Amer) (>60) Est GFR (Non-Af Amer) (>60) BUN/Creatinine Ratio (8-20) Glucose (70-100) mg/dL Lactic Acid 2.7 H* (0.5-2.0) mmol/L Calcium (8.6-10.3) mg/dL Magnesium (1.9-2.7) mg/dL Total Bilirubin (0.2-1.0) mg/dL AST (13-39) U/L ALT (7-52) U/L Alkaline Phosphatase (34-104) U/L Total Protein (6.4-8.9) g/dL Albumin (3.2-5.2) g/dL Globulin (2-4) g/dL Albumin/Globulin Ratio (1-3) TSH (0.34-5.60) mcIU/mL Serum Alcohol (<10) mg/dL Result Diagrams: 06/28/18 13:15 06/28/18 13:15 Lab Statement: Any lab studies that have been ordered have been reviewed, and results considered in the medical decision making process. - Radiology CXR Radiology Interpretation Completed By: Radiologist - No active cardiopulmonary disease is noted. Hyperinflated lung colón are noted. This report has been reviewed by the ED physician. - CT Brain CT Interpretation Completed By: Radiologist - NO ACUTE INTRACRANIAL PATHOLOGY. STABLE POSTSURGICAL CHANGE TO THE FRONTAL LOBES. This report has been reviewed by the ED physician. - EKG 13:36 Cardiac Rate: NL - 83 bpm EKG Rhythm: Sinus Rhythm Summary of EKG Findings: No ST elevation, similar to previous EKG on 08/30/16 Re-Evaluation - Re-Evaluation First Eval Re-Evaluation Time: 15:20 Change: Unchanged Comment: Spoke to patient about discharge. Course/Dx - Course Assessment/Plan: A 62 y/o male brought in by ambulance presents to the ED c/o seizure at 11:00 06/28/2018. The patient states that he was rearranging chemicals when he smelt ammonia and started to have a seizure. He is not sure how long his seizure lasted. He states that he used to take Keppra but changed medication because he claims it would give him red mcnamara on his arms. He has a Hx of seizures and a brain tumor and believes the scar tissue is what triggers his seizures. He also c/o dizziness at the time of onset and numbness in his left leg. He denies syncope, biting his tongue or losing his bowel or urine control but does admit that he had difficulty talking. He claims to have had an MRI 2 months ago and 1.5 years ago which he states were negative. He states that now he is only feeling tired. Test results without any significant abnormality except for glucose of 150 and lactic acid 2.7. In the ED course and the patient was given IV fluids he was placed in a bus driver/monitor and seizure precautions were done. The patient continues to be stable without any symptoms. I discussed the case with Dr. Vasques from neurology and he recommends to increase the Lamictal from 100 twice a day to 100 and the morning and 150 in the afternoon. The patient will follow-up with Dr. Martinez in 2 weeks. I discussed all the findings and test results with the patient. Patient was instructed to return to the emergency room immediately if any of the symptoms return or worsens. Plan of care was discussed with the patient and understands and agrees. All questions were answered at patient satisfaction. There were no further complaints or concerns. Lung exam before discharge: CTA B /L. Good air exchange. No wheezing or crackles heard. CVS: S1 and S2 present. No murmurs appreciated. Patient is alert and oriented x 3. Patient is hemodynamically stable. Patient will be discharged home with follow up PCP in the next 2-3 days - Differential Dx Differential Diagnoses Neuro: Positive: Migraine, Postical, Seizure Disorder - Diagnoses Provider Diagnoses: Seizure - Physician Notifications Discussed Care Of Patient With: Winston Vasques Time Discussed With Above Provider: 14:30 Instructed by Provider To: Other - Dr. Vasques will review the patient's chart and call back later. At 15:[address] Vasques and we agreed upon discharging the patient. Discharge - Sign-Out/Discharge Documenting (check all that apply): Patient Departure - DC - Discharge Plan Condition: Stable Disposition: HOME Patient Education Materials: Recurrent Seizures in Adults (ED) Referrals: Ollie Skaggs MD [Primary Care Provider] - 3 Days Additional Instructions: Patient will be taking Lamictal 100 mg in the morning and 150 mg at night. The patient will follow-up with and Dr. Martinez in 2 weeks at his office. Patient has to call for the appointment. - Billing Disposition and Condition Condition: STABLE Disposition: Home - Attestation Statements Document Initiated by Scribe: Yes Documenting Scribe: Denys Trujillo Provider For Whom Sanjaye is Documenting (Include Credential): Hunter Lux MD Scribe Attestation: I, Denys Trujillo, scribed for Hunter Lux MD on 06/29/18 at 0834. Scribe Documentation Reviewed: Yes Provider Attestation: The documentation as recorded by the Denys castillo accurately reflects the service I personally performed and the decisions made by me, Hunter Lux MD Attestations User Type: Provider with Scribe Provider Attestation: The documentation recorded by the scribe accurately reflects the service I personally performed and the decisions made by me.
[2018-06-28 16:28] VITALS: BP 157/88
== END 2018-06-28 16:28 | disposition home or self-care (01) ==
LOC: ED 12:18
DX: R56.9 Unspecified convulsions (principal); R53.83 Other fatigue; Z88.0 Allergy status to penicillin; R42 Dizziness and giddiness; R20.0 Anesthesia of skin
CPT/HCPCS: 36415; 70450; 71046; 80053; 80175; 80320; 83605; 83735; 84443; 85025; 85610; 85730; 93005; 99283; G0480

== ENCOUNTER 2018-09-13 11:58 | Emergency (ER) | payer BC ==
--- NOTE | 2018-09-13 12:09 | ED ---
Neurological HPI - HPI Summary HPI Summary: A 62 y/o male brought in by ambulance presents to the ED c/o dizziness, confusion, and possible seizure. In the ED room, the patient has a pulse of 96 BPM, O2 saturation of 94%, respiratory rate of 27, and blood pressure of 167/ 114. As per triage, "EMS called for c/o dizziness and confusion - EMT states pt was sitting on couch and not responding well. gazed to the left and had witnessed grand mal seizure". According to the patient, he had a mild seizure. As per EMS, they were called for dizziness and confusion. Upon arrival, the patient was sitting on couch and was unresponsive. Patient was also gazing to the left. Patient has a history of seizures. Patient was working with 1-methyl-2 -pyrrrolidinone which is a eye and skin irritant, flammable liquid, and when working with this material, must wash hands thoroughly in sink after handling. Patient takes medications in the morning and night but does not know what he takes. Patient is still coming out of it. 1402 - Patient is alert and maintained good O2 saturation. Patient indicated that he was feeling better and feels normal. He stated that he smelled a toxic odor coming from the chemical substance he was working with as he was experiencing new mixing techniques. Patient is currently asymptomatic. Last seizure was 3 months ago. Patient sees neurologist, Dr. Duggan. Patient stated that he missed an evening dose of Lamictal. Patient sleeps 6 hours per night. No ETOH. - History of Current Complaint Chief Complaint: EDSeizure Stated Complaint: SEIZURES Time Seen by Provider: 09/13/18 12:01 Hx Obtained From: Patient, EMS Onset/Duration: Sudden Onset, Still Present Timing: Constant Current Severity: None Seizure Severity: Mild Number of Seizures: 1 Pain Intensity: 0 Pain Scale Used: 0-10 Numeric Character: Dizzy, Confusion Syncope Timin Number of Episodes: 0 Aggravating: Nothing Alleviating: Nothing Associated Signs and Symptoms: Positive: Confusion, Dizziness - Additional Pertinent History Primary Care Physician: [id number] - Allergy/Home Medications Allergies/Adverse Reactions: Allergies Allergy/AdvReac Type Severity Reaction Status Date / Time Penicillins Allergy Severe Shortness Verified 09/13/18 12:09 of Breath PMH/Surg Hx/FS Hx/Imm Hx Endocrine/Hematology History: Denies: Hx Diabetes Cardiovascular History: Denies: Hx Coronary Artery Disease, Hx Hypertension, Hx Pacemaker/ICD Respiratory History: Denies: Hx Asthma Comment Only: Other Respiratory Problems/Disorders - HX OF SEIZURES History: Denies: Hx Dialysis, Hx Renal Disease Sensory History: Denies: Hx Hearing Aid Neurological History: Reports: Hx Seizures - s/p meningioma resection Psychiatric History: Reports: Hx Depression Denies: Hx Panic Disorder - Cancer History Cancer Type, 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 TONSILECTOMY Infectious Disease History: Unable to Obtain/Confirm Infectious Disease History: Denies: Traveled Outside the [place] in Last 30 Days - Family History Known Family History: Negative: Cardiac Disease, Hypertension, Diabetes Family History: R & n/C - Social History Alcohol Use: None Alcohol Amount: 5 beers Hx Substance Use: No Substance Use Type: Reports: None Hx Tobacco Use: No Smoking Status (MU): Never Smoked Tobacco Review of Systems Negative: Fever, Chills Negative: Sore Throat Negative: Chest Pain Negative: Shortness Of Breath, Cough Negative: Abdominal Pain, Vomiting, Nausea Negative: dysuria, hematuria Negative: Myalgia, Edema Negative: Rash Neurological: Other - POSITIVE: DIZZINESS, CONFUSION, AND POSSIBLE SEIZURE All Other Systems Reviewed And Are Negative: Yes Physical Exam - Summary Physical Exam Summary: Constitutional: Well-developed, Well-nourished, Alert. (-) Distressed Skin: Warm, Dry HENT: Normocephalic; Atraumatic Eyes: Conjunctiva normal Neck: Musculoskeletal ROM normal neck. (-) JVD, (-) Stridor, (-) Tracheal deviation Cardio: Rhythm regular, rate normal, Heart sounds normal; Intact distal pulses; The pedal pulses are 2+ and symmetric. Radial pulses are 2+ and symmetric. (-) Murmur Pulmonary/Chest wall: Effort normal. (-) Respiratory distress, (-) Wheezes, (-) Rales Abd: Soft. (-) Tenderness, (-) Distension, (-) Guarding, (-) Rebound Musculoskeletal: (-) Edema Lymph: (-) Cervical adenopathy Neuro: Alert, Oriented x3, Strength normal, Cranial nerves II-XII are grossly intact. (-) Dysmetria, (-) Ataxia by finger to nose testing, (-) Sensory deficit. Patient is slow to answer, speech is slurred, patient is disoriented, and has some nystagmus. Psych: Mood and affect Normal Triage Information Reviewed: Yes Vital Signs On Initial Exam: Initial Vitals Temp Pulse Resp BP Pulse Ox 99.4 F 97 16 167/114 92 09/13/18 11:59 09/13/18 11:59 09/13/18 11:59 09/13/18 11:59 09/13/18 11:59 Vital Signs Reviewed: Yes Diagnostics - Vital Signs Vital Signs Temp Pulse Resp BP Pulse Ox 09/13/18 11:59 99.4 F 97 16 167/114 92 - Laboratory Result Diagrams: 09/13/18 12:20 09/13/18 12:20 Lab Statement: Any lab studies that have been ordered have been reviewed, and results considered in the medical decision making process. - EKG 1210 Cardiac Rate: NL - 85 BPM EKG Rhythm: Sinus Rhythm - 85 BPM Summary of EKG Findings: NEGATIVE STEMI. Course/Dx - Course Course Of Treatment: A 62 y/o male brought in by ambulance presents to the ED c/ o dizziness, confusion, and possible seizure. In the ED room, the patient has a pulse of 96 BPM, O2 saturation of 94%, respiratory rate of 27, and blood pressure of 167/114. According to the patient, he had a mild seizure. As per EMS , they were called for dizziness and confusion. Upon arrival, the patient was sitting on couch and was unresponsive. Patient was also gazing to the left. Patient has a history of seizures. Patient was working with 1-methyl-2- pyrrrolidinone. Patient indicated that he was feeling better and feels normal. He stated that he smelled a toxic odor coming from the chemical substance he was working with as he was experiencing new mixing techniques. Patient is currently asymptomatic. Physical examination findings significant for patient is slow to answer, speech is slurred, patient is disoriented, and has some nystagmus. An EKG revealed NSR of 85 BPM, negative STEMI. Hematology, coagulation, Chemistry, and toxicology screens were done. No significant laboratory abnormalities were found except hyperglycemia of 105 mg/dL and elevated lactic acid of 4.6 mmol/L. Patient will be discharged with a diagnosis of breakthrough seizure and toxic fume exposure. Patient is to follow up with his neurologist, Dr. Mo Duggan, in 3-5 days. Patient is to return to ED for any new or worsening symptoms. Patient is agreeable with this plan. - Diagnoses Provider Diagnoses: Breakthrough seizure, Toxic effect of fumes Discharge - Sign-Out/Discharge Documenting (check all that apply): Patient Departure - DISCHARGE - Discharge Plan Condition: Stable Disposition: HOME Patient Education Materials: Nonepileptic Seizures (ED) Forms: *Work Release Referrals: Ollie Skaggs MD [Primary Care Provider] - Mo Duggan MD [Medical Doctor] - 5 Days Additional Instructions: FOLLOW UP WITH DR. DUGGAN IN 3-5 DAYS. RETURN TO ED FOR ANY NEW OR WORSENING SYMPTOMS. - Attestation Statements Document Initiated by Scribe: Yes Documenting Scribe: Dereck Gil Provider For Whom Scribe is Documenting (Include Credential): Obdulio Treviño MD Scribe Attestation: Dereck Briseno, scribed for Obdulio Treviño MD on 09/13/18 at 1411. Status of Scribe Document: Ready
[2018-09-13 12:27] LABS: ABS Basophils 0.1 10^3/ul (0-0.2); ABS Eosinophils 0.2 10^3/ul (0-0.6); ABS Lymphocytes 1.3 10^3/ul (1.0-4.8); ABS Monocytes 0.4 10^3/ul (0-0.8); ABS Neutrophils 2.4 10^3/ul (1.5-7.7); ABS Nucleated RBC 0 10^3/ul; Eosinophil % 4.4 %; Hematocrit 43 % (42-52); Hemoglobin 14.8 g/dl (14.0-18.0); Lymphocyte % 30.2 %; Mean Corpuscular HGB Conc 34 g/dl (31-36); Mean Corpuscular Hemoglobin 31 pg (27-31); Mean Corpuscular Volume 89 fL (80-94); Nucleated Red Blood Cells % 0; Platelet Count 197 10^3/ul (150-450); Red Blood Count 4.83 10^6/ul (4.00-5.40); Red Cell Distribution Width 14 % (10.5-15); White Blood Count 4.3 10^3/ul (3.5-10.8)
[2018-09-13 12:41] LABS: INR 0.86 (0.77-1.02)
[2018-09-13 12:50] LABS: ALT 23 U/L (7-52); AST 23 U/L (13-39); Albumin 4.2 g/dL (3.2-5.2); Albumin/Globulin Ratio 1.7 (1-3); Alkaline Phosphatase 77 U/L (34-104); Anion Gap 10 mmol/L (2-11); BUN/Creatinine Ratio 12.4 (8-20); Blood Urea Nitrogen 12 mg/dL (6-24); CO2 Carbon Dioxide 25 mmol/L (22-32); Calcium 9.7 mg/dL (8.6-10.3); Chloride 103 mmol/L (101-111); EGFR African American 95.5 (>60); EGFR Non-African American 78.9 (>60); Globulin 2.5 g/dL (2-4); Glucose 105 mg/dL (70-100); Magnesium 2.1 mg/dL (1.9-2.7); Potassium 3.9 mmol/L (3.5-5.0); Sodium 138 mmol/L (135-145); Total Protein 6.7 g/dL (6.4-8.9)
[2018-09-13 13:08] LABS: Alcohol < 10 mg/dL (<10)
[2018-09-13 14:38] VITALS: BP 162/107
== END 2018-09-13 14:37 | disposition home or self-care (01) ==
LOC: ED 11:58
DX: R56.9 Unspecified convulsions (principal); T65.91XA Toxic effect of unspecified substance, accidental (unintentional), initial encounter; Y92.9 Unspecified place or not applicable; R42 Dizziness and giddiness; R41.0 Disorientation, unspecified
CPT/HCPCS: 36415; 80053; 80175; 80320; 83605; 83735; 85025; 85610; 93005; 99283; G0480

== ENCOUNTER 2018-09-15 14:28 | Emergency (ER) | payer BC ==
[2018-09-15 15:45] LABS: ABS Basophils 0.1 10^3/ul (0-0.2); ABS Eosinophils 0.1 10^3/ul (0-0.6); ABS Lymphocytes 1.9 10^3/ul (1.0-4.8); ABS Neutrophils 7.6 10^3/ul (1.5-7.7); ABS Nucleated RBC 0 10^3/ul; Eosinophil % 0.9 %; Hematocrit 45 % (42-52); Hemoglobin 15.2 g/dl (14.0-18.0); Lymphocyte % 17.6 %; Mean Corpuscular HGB Conc 34 g/dl (31-36); Mean Corpuscular Hemoglobin 30 pg (27-31); Mean Corpuscular Volume 89 fL (80-94); Mean Platelet Volume 7.2 fL (7.4-10.4); Nucleated Red Blood Cells % 0; Platelet Count 218 10^3/ul (150-450); Red Blood Count 5.07 10^6/ul (4.00-5.40); Red Cell Distribution Width 13 % (10.5-15); White Blood Count 10.6 10^3/ul (3.5-10.8)
[2018-09-15 16:05] LABS: Albumin 4.8 g/dL (3.2-5.2); Albumin/Globulin Ratio 1.9 (1-3); BUN/Creatinine Ratio 10.9 (8-20); C Reactive Protein 73.49 mg/L (<8.01); Calcium 10.1 mg/dL (8.6-10.3); EGFR African American 101.5 (>60); EGFR Non-African American 83.9 (>60); Globulin 2.5 g/dL (2-4); Potassium 4.4 mmol/L (3.5-5.0); Total Bilirubin 0.9 mg/dL (0.2-1.0); Total Protein 7.3 g/dL (6.4-8.9); Troponin I 0.01 ng/mL (<0.04)
[2018-09-15] MEDS ORDERED: NS 0.9% 1000 ML** 1,000 ML IV ONE (16:18)
--- NOTE | 2018-09-15 16:50 | ED ---
Abdominal Pain/Male - HPI Summary HPI Summary: This patient is a 62 year old male presenting to the emergency department with a chief complaint of abd pain that began two days ago. The pain was diffuse but yesterday localized to his RLQ he does still have his appendix and is having some related nausea. Pt rates the pain 6/10 in severity. He denies v/d. - History of Current Complaint Chief Complaint: EDAbdPain Stated Complaint: ABD PAIN Time Seen by Provider: 09/15/18 16:02 Hx Obtained From: Patient Onset/Duration: Lasting Days, Still Present Timing: Constant Severity Initially: Moderate Severity Currently: Moderate Pain Intensity: 6 Pain Scale Used: 0-10 Numeric Location: Diffuse, Discrete At: RLQ Radiates: No Associated Signs And Symptoms: Negative: Vomiting, Diarrhea - Allergies/Home Medications Allergies/Adverse Reactions: Allergies Allergy/AdvReac Type Severity Reaction Status Date / Time Penicillins Allergy Severe Shortness Verified 09/13/18 12:09 of Breath PMH/Surg Hx/FS Hx/Imm Hx Endocrine/Hematology History: Denies: Hx Diabetes Cardiovascular History: Denies: Hx Auto Implanted Cardiovert Defib, Hx Coronary Artery Disease, Hx Hypertension, Hx Pacemaker/ICD Respiratory History: Denies: Hx Asthma, Hx Chronic Obstructive Pulmonary Disease (COPD) Comment Only: Other Respiratory Problems/Disorders - HX OF SEIZURES GI History: Denies: Hx Gastroesophageal Reflux Disease History: Denies: Hx Dialysis, Hx Renal Disease Sensory History: Denies: Hx Hearing Aid Neurological History: Reports: Hx Seizures - s/p meningioma resection Psychiatric History: Reports: Hx Depression Denies: Hx Panic Disorder - Cancer History Cancer Type, 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 TONSILECTOMY Infectious Disease History: No Infectious Disease History: Denies: Traveled Outside the [place] in Last 30 Days - Family History Known Family History: Negative: Cardiac Disease, Hypertension, Diabetes Family History: R & n/C - Social History Alcohol Use: None Alcohol Amount: 5 beers Hx Substance Use: No Substance Use Type: Reports: None Hx Tobacco Use: No Smoking Status (MU): Never Smoked Tobacco Review of Systems Negative: Fever Positive: Abdominal Pain, Nausea. Negative: Vomiting, Diarrhea All Other Systems Reviewed And Are Negative: Yes Physical Exam - Summary Physical Exam Summary: Appearance: Well appearing, no pain distress Skin: warm, dry, reflects adequate perfusion Head/face: normal Eyes: EOMI, UNA ENT: normal Neck: supple, non-tender Respiratory: CTA, breath sounds present Cardiovascular: RRR, pulses symmetrical Abdomen: TTP in RLQ, soft Musculoskeletal: normal, strength/ROM intact Neuro: normal, sensory motor intact, A&Ox3 Triage Information Reviewed: Yes Vital Signs On Initial Exam: Initial Vitals Temp Pulse Resp BP Pulse Ox 98.2 F 84 18 177/106 96 09/15/18 14:33 09/15/18 14:33 09/15/18 14:33 09/15/18 14:33 09/15/18 14:33 Vital Signs Reviewed: Yes Diagnostics - Vital Signs Vital Signs Temp Pulse Resp BP Pulse Ox 09/15/18 14:33 98.2 F 84 18 177/106 96 - Laboratory Lab Results: Lab Results 09/15/18 09/15/18 09/15/18 Range/Units 15:37 15:37 15:37 WBC 10.6 (3.5-10.8) 10^3/ul RBC 5.07 (4.00-5.40) 10^6/ul Hgb 15.2 (14.0-18.0) g/dl Hct 45 (42-52) % MCV 89 (80-94) fL MCH 30 (27-31) pg MCHC 34 (31-36) g/dl RDW 13 (10.5-15) % Plt Count 218 (150-450) 10^3/ul MPV 7.2 L (7.4-10.4) fL Neut % (Auto) 71.4 % Lymph % (Auto) 17.6 % Bledsoe % (Auto) 9.4 % Eos % (Auto) 0.9 % Baso % (Auto) 0.7 % Absolute Neuts (auto) 7.6 (1.5-7.7) 10^3/ul Absolute Lymphs (auto) 1.9 (1.0-4.8) 10^3/ul Absolute Monos (auto) 1.0 H (0-0.8) 10^3/ul Absolute Eos (auto) 0.1 (0-0.6) 10^3/ul Absolute Basos (auto) 0.1 (0-0.2) 10^3/ul Absolute Nucleated RBC 0 10^3/ul Nucleated RBC % 0 Sodium 138 (135-145) mmol/L Potassium 4.4 (3.5-5.0) mmol/L Chloride 101 (101-111) mmol/L Carbon Dioxide 30 (22-32) mmol/L Anion Gap 7 (2-11) mmol/L BUN 10 (6-24) mg/dL Creatinine 0.92 (0.67-1.17) mg/dL Est GFR ( Amer) 101.5 (>60) Est GFR (Non-Af Amer) 83.9 (>60) BUN/Creatinine Ratio 10.9 (8-20) Glucose 115 H (70-100) mg/dL Lactic Acid 1.3 (0.5-2.0) mmol/L Calcium 10.1 (8.6-10.3) mg/dL Total Bilirubin 0.90 (0.2-1.0) mg/dL AST 21 (13-39) U/L ALT 22 (7-52) U/L Alkaline Phosphatase 67 (34-104) U/L Troponin I 0.01 (<0.04) ng/mL C-Reactive Protein 73.49 H (<8.01) mg/L Total Protein 7.3 (6.4-8.9) g/dL Albumin 4.8 (3.2-5.2) g/dL Globulin 2.5 (2-4) g/dL Albumin/Globulin Ratio 1.9 (1-3) Lipase 11 (11.0-82.0) U/L Result Diagrams: 09/15/18 15:37 09/15/18 15:37 Lab Statement: Any lab studies that have been ordered have been reviewed, and results considered in the medical decision making process. - CT ct abd/pelvis CT Interpretation Completed By: Radiologist Summary of CT Findings: CT ABD/ Pelvis reveals, per radiology, 1. Acute diverticulitis and associated segmental colitis involving a short. segment of the sigmoid colon. This is located in the right lower quadrant, in. close proximity to the appendix. 2. Normal appendix. 3. Findings suggest ileus. ED physician has reviewed this report. Abdominal Pain Fem Course/Dx - Course Assessment/Plan: This patient is a 62 year old male presenting to the emergency department with a chief complaint of abd pain that began two days ago. The pain was diffuse but yesterday localized to his RLQ he does still have his appendix and is having some related nausea. Pt rates the pain 6/10 in severity. He denies v/d. CT ABD/ Pelvis reveals, per radiology, 1. Acute diverticulitis and associated segmental colitis involving a short. segment of the sigmoid colon. This is located in the right lower quadrant, in. close proximity to the appendix. 2. Normal appendix. 3. Findings suggest ileus. In the ED the pt was given cipro and flagyl. His sx improved with medications. The patient was offered admission and declined. He will be discharged home with abx and f.u with pcp. - Diagnoses Differential Diagnosis/HQI/PQRI: Appendicitis, Diverticulitis, Pancreatitis, Renal Colic, Ureteral Stone Provider Diagnoses: Diverticulitis Discharge - Sign-Out/Discharge Documenting (check all that apply): Patient Departure - Discharge Plan Condition: Stable Disposition: HOME Prescriptions: Ciprofloxacin TAB* [Cipro 500 MG TAB*] 500 mg PO BID #20 tab metroNIDAZOLE [Flagyl 500 MG TAB] 500 mg PO TID #30 tab Oxycodone HCl/Acetaminophen [Percocet] 1 tab PO TID #15 tab MDD 3 Patient Education Materials: Diverticulitis (ED) Referrals: Ollie kSaggs MD [Primary Care Provider] - 2 Days Additional Instructions: Follow up with your primary care physician in 1-3 days. RETURN TO THE EMERGENCY DEPARTMENT FOR CHANGING OR WORSENING SYMPTOMS. - Billing Disposition and Condition Condition: STABLE Disposition: Home - Attestation Statements Document Initiated by Harika: Yes Documenting Scribe: Gaetano Kenny Provider For Whom Harika is Documenting (Include Credential): Edward Padilla MD Scribe Attestation: Gaetano Briseno , scribed for Edward Padilla MD on 09/15/18 at 2122. Scribe Documentation Reviewed: Yes Provider Attestation: The documentation as recorded by the Gaetano castillo accurately reflects the service I personally performed and the decisions made by Edward guillen MD Status of Scribe Document: Viewed
[2018-09-15] MEDS ORDERED: Iohexol 300* (CONTRAST) 10 ML SDV IV ONE (18:45)
[2018-09-15] MEDS ORDERED: Ciprofloxacin 400MG IVPREMIX(* 400 MG/200 ML BAG IVPB ONE (20:24)
[2018-09-15] MEDS ORDERED: metroNIDAZOLE IV 500 MG/100ML* 500 MG/100 ML BAG IVPB ONE (20:25)
[2018-09-15] MEDS ORDERED: oxyCODONE/Acetamin 5/325 MG* TAB PO ONE (20:35)
--- NOTE | 2018-09-15 23:05 | CONS ---
CONSULTATION REPORT: DATE OF CONSULT: 09/15/18 - EMERGENCY DEPT REFERRING PROVIDER: Dr. Padilla from the emergency room. CHIEF COMPLAINT: Right lower quadrant abdominal pain HISTORY OF PRESENT ILLNESS: Mr. Winston Hinton is a 62-year-old gentleman who developed some generalized lower abdominal discomfort yesterday morning upon waking. He was somewhat ill over the course of the day; although he had no nausea, vomiting or fevers. He had some difficulty sleeping last night and over the course of the morning, the pain became more localized in the right lower quadrant. He presented to the emergency room with concern for acute appendicitis. He has had no change in his bowel habits, no bleeding including melena or bright red blood per rectum. He had no urinary complaints. He did have some nausea and he rated the pain about 6/10. The pain was worse with movement and he had been somewhat anorexic. In the emergency room, he was noted to be afebrile. Vitals signs were stable. He had a white blood cell count of 10.6 without shift. C-reactive protein although was 73 and a lactic acid of 1.3 but his renal function was unremarkable. He subsequently underwent a CT scan of the abdomen and pelvis. This showed a very redundant sigmoid colon with what appears to be diverticulitis in the distal descending or sigmoid colon with normal a appendix. A surgical opinion was requested. PAST MEDICAL HISTORY: Seizure disorder. PAST SURGICAL HISTORY: Tonsillectomy. MEDICATIONS: Lamotrigine (Lamictal) 100 mg p.o. b.i.d. ALLERGIES: PENICILLIN. SOCIAL HISTORY: He does not smoke or drink. He lives with his girlfriend. He works at a local [employer]. REVIEW OF SYSTEMS: He has never undergone a colonoscopy in the past. He has never had diverticulitis before. PHYSICAL EXAM: He is a well-developed, well-nourished male who appears to be in no apparent distress. His lungs were clear to auscultation with normal respiratory effort. Heart was regular rate and rhythm without murmurs, rubs, or gallops. Abdomen is somewhat firm but slightly distended. There are no prior surgical incisions. He had diminished bowel sounds throughout but they were present and normoactive. There are no hernias. He has some tenderness in the right lower quadrant with some voluntary guarding and rigidity. There is some mild suprapubic pain as well. DIAGNOSTIC STUDIES/LAB DATA: Upon seeing the patient, the CT scan was completed and this shows a normal appendix with a very redundant descending and sigmoid colon with diverticulitis of this portion of the colon in the right lower quadrant of the abdomen without evidence of extraluminal air, abscess or free fluid. IMPRESSION: Sigmoid colon diverticulitis presenting with severe right lower quadrant abdominal pain, certainly worrisome for possible acute appendicitis prior to CAT scan completion. PLAN/RECOMMENDATIONS: I reviewed the findings with Dr. Padilla here in the emergency room and we discussed the care with this patient. He has no fever and he has normal white blood cell count and does not have generalized peritonitis or localized pain. Dr. Padilla feels that he is a candidate for discharge home on oral antibiotics with analgesia and close followup. I agree with this plan and defer to Dr. Padilla for the management of outpatient diverticulitis. There was a normal appendix noted on CT scan and I will see him back as needed. [id number]/CPS #: [id number] MTDD
[2018-09-15 23:14] VITALS: BP 178/109
== END 2018-09-15 23:13 | disposition home or self-care (01) ==
LOC: ED 14:28
DX: K57.92 Diverticulitis of intestine, part unspecified, without perforation or abscess without bleeding (principal); R10.31 Right lower quadrant pain; Z88.0 Allergy status to penicillin; G40.909 Epilepsy, unspecified, not intractable, without status epilepticus
CPT/HCPCS: 36415; 74177; 80053; 83605; 83690; 84484; 85025; 86140; 96361; 96365; 99283; A9270-GY; J0744; J3490; Q9967

== ENCOUNTER 2019-05-21 14:02 | Emergency (ER) | payer BC ==
--- NOTE | 2019-05-21 16:16 | ED ---
Head Injury - HPI Summary HPI Summary: Pt. is a 63 y.o male who presents to the ER for evaluation of head injury that occurred about a week ago. Pt. states the was sick last week with flu like symptoms. Pt. states he was trying to do some light excercises when he lost his balance and fell into dresser striking right forehead. Pt. states he lost consciousness. He denies chest pain or shortness of breath. Pt. states his flu like sxs have resolved. Pt. notes hx of brain mass resection and seizures. Pt. denies seizure activity. Is not anticoagulated. Pt. concerned because swelling to right side of forehead persist and he has also developed bruising around his eyes. Pt. call his PCP who directed him to the ER. Sxs are moderate in severity. No current modifying factors. - History Of Current Complaint Chief Complaint: EDHeadInjury Stated Complaint: FALL- HEAD INJURY PER PT Time Seen by Provider: 05/21/19 15:48 Hx Obtained From: Patient Pain Intensity: 3 - Allergies/Home Medications Allergies/Adverse Reactions: Allergies Allergy/AdvReac Type Severity Reaction Status Date / Time Penicillins Allergy Severe Shortness Verified 09/13/18 12:09 of Breath Home Medications: Home Medications lamoTRIgine TAB(*) [LaMICtal TAB(*)] 100 mg PO QAM 05/21/19 [History Confirmed 05/21/19] lamoTRIgine TAB(*) [LaMICtal TAB(*)] 150 mg PO QPM 05/21/19 [History Confirmed 05/21/19] PMH/Surg Hx/FS Hx/Imm Hx Previously Healthy: Yes Endocrine/Hematology History: Denies: Hx Diabetes Cardiovascular History: Denies: Hx Auto Implanted Cardiovert Defib, Hx Coronary Artery Disease, Hx Hypertension, Hx Pacemaker/ICD Respiratory History: Denies: Hx Asthma, Hx Chronic Obstructive Pulmonary Disease (COPD) Comment Only: Other Respiratory Problems/Disorders - HX OF SEIZURES GI History: Denies: Hx Gastroesophageal Reflux Disease History: Denies: Hx Dialysis, Hx Renal Disease Sensory History: Denies: Hx Hearing Aid Neurological History: Reports: Hx Seizures - s/p meningioma resection Psychiatric History: Reports: Hx Depression Denies: Hx Panic Disorder - Cancer History Cancer Type, 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 TONSILECTOMY Infectious Disease History: No Infectious Disease History: Denies: Traveled Outside the [place] in Last 30 Days - Family History Known Family History: Positive: Non-Contributory Negative: Cardiac Disease, Hypertension, Diabetes Family History: R & n/C - Social History Occupation: Employed Full-time Lives: With Family Alcohol Use: None Alcohol Amount: 5 beers Hx Substance Use: No Substance Use Type: Reports: None Hx Tobacco Use: No Smoking Status (MU): Never Smoked Tobacco Review of Systems Constitutional: Negative Eyes: Negative ENT: Negative Cardiovascular: Negative Respiratory: Negative Gastrointestinal: Negative Negative: Vomiting, Nausea Musculoskeletal: Negative Positive: Bruising Positive: Headache, Syncope. Negative: Weakness, Paresthesia, Numbness, Slurred Speech All Other Systems Reviewed And Are Negative: Yes Physical Exam Triage Information Reviewed: Yes Vital Signs On Initial Exam: Initial Vitals Temp Pulse Resp BP Pulse Ox 98.2 F 69 18 169/102 96 05/21/19 14:16 05/21/19 14:16 05/21/19 14:16 05/21/19 14:16 05/21/19 14:16 Vital Signs Reviewed: Yes Appearance: Positive: Well-Appearing - Pt. sitting in chair in NAD. Family present. Skin: Positive: Warm, Dry Head/Face: Positive: Other - Large hematoma to right forehead. Ecchymosis around bilateral eyes. Eyes: Positive: Normal, EOMI, UNA, Conjunctiva Clear ENT: Positive: TMs normal Neck: Positive: Supple - Mild midline tenderness. Respiratory/Lung Sounds: Positive: Clear to Auscultation, Breath Sounds Present Cardiovascular: Positive: Normal, RRR Musculoskeletal: Positive: Normal, Strength/ROM Intact Neurological: Positive: Normal, Alert, Oriented to Person Place, Time, CN Intact II-III, Finger to Nose - Normal, Facial Symmetry, Speech Normal. Negative: Facial Droop, Slurred Speech, Pronator Drift Present Psychiatric: Positive: Affect/Mood Appropriate Procedures - Sedation Patient Received Moderate/Deep Sedation with Procedure: No Diagnostics - Vital Signs Vital Signs Temp Pulse Resp BP Pulse Ox 05/21/19 14:16 98.2 F 69 18 169/102 96 - Laboratory Result Diagrams: 05/21/19 16:50 05/21/19 16:50 Lab Statement: Any lab studies that have been ordered have been reviewed, and results considered in the medical decision making process. Head Injury Course/Dx Course Of Treatment: Pt. presenting for evaluation of head injury that occurred about a week ago after a syncopal episode. Asymptomatic since. ECG done at 1617 shows a sinus zev of 59bpm, normal axis, no STEMI. CT brain shows soft tissue swelling without skull fx or intracanial bleed per radiology. Negative neck and facial CT. CXR negative per radiology. Labs are unremarkable. Results discussed. Recommend close f.u with PCP for recheck within one week. To ice hematoma. To return to ER if sxs change or worsen. Pt. understands and agrees with plan. - Diagnoses Provider Diagnoses: Head injury, Syncope, Hematoma Discharge ED - Sign-Out/Discharge Documenting (check all that apply): Patient Departure - Discharge Plan Condition: Good Disposition: HOME Patient Education Materials: Syncope (ED), Head Injury (ED), Hematoma (ED) Referrals: Ollie Skaggs MD [Primary Care Provider] - Additional Instructions: Follow up with your PCP and neurologist for recheck within one week Ice forehead intermittently Tylenol or Motrin for pain as directed Return to ER if symptoms change or worsen - Billing Disposition and Condition Condition: GOOD Disposition: Home - Attestation Statements Provider Attestation: I was available for consultation for this patient. I did not evaluate the patient, or participate in any medical decision making or disposition decisions unless I am specifically named in the chart as having consulted on the patient. If I have consulted on the patient, please see my own ED note on the patient encounter. Lisa Montes MD
[2019-05-21 16:56] LABS: ABS Basophils 0.2 10^3/ul (0-0.2); ABS Eosinophils 0.2 10^3/ul (0-0.6); ABS Lymphocytes 2.2 10^3/ul (1.0-4.8); ABS Monocytes 0.6 10^3/ul (0-0.8); ABS Neutrophils 2.4 10^3/ul (1.5-7.7); Eosinophil % 4.4 %; Hematocrit 42 % (42-52); Hemoglobin 14.3 g/dL (14.0-18.0); Lymphocyte % 39.9 %; Mean Corpuscular HGB Conc 35 g/dL (31-36); Mean Corpuscular Hemoglobin 31 pg (27-31); Mean Corpuscular Volume 89 fL (80-94); Mean Platelet Volume 7.1 fL (7.4-10.4); Nucleated Red Blood Cells % 0.1; Platelet Count 214 10^3/uL (150-450); Red Blood Count 4.67 10^6 /uL (4.18-5.48); Red Cell Distribution Width 14 % (10-15); White Blood Count 5.6 10^3/uL (3.5-10.8)
[2019-05-21 17:04] LABS: Activated Partial Thrombo Time 38.5 seconds (26.0-38.0); INR 0.91 (0.82-1.09)
[2019-05-21 17:13] LABS: Albumin 4.6 g/dL (3.2-5.2); Albumin/Globulin Ratio 2.2 (1-3); BUN/Creatinine Ratio 10.9 (8-20); Calcium 9.6 mg/dL (8.6-10.3); EGFR African American 101.2 (>60); EGFR Non-African American 83.6 (>60); Globulin 2.1 g/dL (2-4); Magnesium 2.3 mg/dL (1.9-2.7); Total Bilirubin 0.4 mg/dL (0.2-1.0); Total Protein 6.7 g/dL (6.4-8.9)
[2019-05-21 17:15] LABS: Troponin I 0.01 ng/mL (<0.04)
[2019-05-21 17:35] VITALS: BP 177/112
== END 2019-05-21 17:30 | disposition home or self-care (01) ==
LOC: ED 14:02
DX: S06.9X9A Unspecified intracranial injury with loss of consciousness of unspecified duration, initial encounter (principal); S00.83XA Contusion of other part of head, initial encounter; W18.09XA Striking against other object with subsequent fall, initial encounter; Y93.B9 Activity, other involving muscle strengthening exercises; Y92.003 Bedroom of unspecified non-institutional (private) residence as the place of occurrence of the external cause; R55 Syncope and collapse; R00.1 Bradycardia, unspecified; G93.89 Other specified disorders of brain; G40.909 Epilepsy, unspecified, not intractable, without status epilepticus; Z88.0 Allergy status to penicillin
CPT/HCPCS: 36415; 70450; 70486; 71045; 72125; 80053; 83735; 84484; 85025; 85610; 85730; 93005; 99282